=== PATIENT | female | born 1965 | race Caucasian/White ===

== ENCOUNTER → 2019-12-01 12:47 | Outpatient (CLI) | payer BC, SELFPAY ==
--- NOTE | ~2019-12-01 | MM_ITS ---
EXAMINATION: MM screening [facility] BI w rose marie HISTORY: Screening mammogram TECHNIQUE: Craniocaudal and mediolateral oblique 3-D tomosynthesis images were obtained and synthetic 2-D images were generated. CAD analysis was submitted and interpreted. COMPARISON: 12/17/2017, 12/08/2017, 10/26/2016, 10/12/2016 BREAST PARENCHYMAL COMPOSITION: There are scattered areas of fibroglandular density. FINDINGS: There is stable focal asymmetry in the posterior third of the upper inner left breast. Ther e is no evidence of suspicious mass, calcification, or architectural distortion to suggest malignancy in either breast. There has been no suspicious interval change. IMPRESSION: 1. No mammographic evidence of malignancy. 2. Recommend routine screening mammography in one year. BI-RADS Category 2: Benign finding(s). Reviewed, dictated and finalized at location A.
== END ==
PROVIDERS: PCP Family Medicine; Visit Provider Obstetrics & Gynecology Gynecology
DX: Z12.31 Encounter for screening mammogram for malignant neoplasm of breast (principal)
CPT/HCPCS: 77063; 77067

== ENCOUNTER → 2020-02-19 15:30 | Emergency (ER) | payer SELFPAY ==
--- NOTE | 2020-02-19 15:40 | PC.NURSE ---
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 Left from registration due to her insurance being ineligable.
== END | disposition left against medical advice (07) ==
PROVIDERS: Emergency Provider Nurse Practitioner; PCP Family Medicine
DX: Z53.21 Procedure and treatment not carried out due to patient leaving prior to being seen by health care provider (principal)
CPT/HCPCS: 99199

== ENCOUNTER 2020-04-22 15:44 | Emergency (ER) | payer BC, SELFPAY ==
--- NOTE | 2020-04-22 15:50 | ED.URI ---
HPI - URI/Sore Throat General Chief Complaint: Upper Respiratory Infection Stated Complaint: upper respiratory infection Time Seen by Provider: 04/22/20 15:50 Source: patient and RN notes reviewed Mode of arrival: ambulatory Limitations: no limitations History of Present Illness HPI Narrative: The overweight patient, non-smoker/ occ drinker, presents with sore throat. Patient states a week history of sore scratchy throat with pain radiating to her left ear. No fever measured, cough, shortness of breath, chest pains, sick family, sneezing/wheezing, vomiting/diarrhea/dehydration, rash, known sick contacts, travel history. Patient requests amoxicillin preparations, as 'worked in the past before'. Related Data Home Medications Medication Instructions Recorded Confirmed ergocalciferol (vitamin D2) 1,250 mcg PO WEEKLY 04/22/20 04/22/20 [Vitamin D2] potassium chloride 10 meq PO DAILY 04/22/20 04/22/20 Allergies Allergy/AdvReac Type Severity Reaction Status Date / Time latex Allergy Mild NOT SURE, Unverified 04/22/20 16:03 NO PROBLEMS WITH FRUIT, NUTS, BALLOONS, ELASTIC Review of Systems Review of Systems: Narrative: General/Constitutional: No weight loss,fever Eyes: N0: Redness,discharge Ears/Nose/Throat: No: Epistaxis,ear discharge Respiratory: Denies: Hemoptysis Gastrointestinal: No Vomiting, Bleeding-rectal Skin: No Lumps, eruption Neurologic: No Focal Weakness,Sz Hematologic: Denies: Petechiae/Purpura Psychiatric: No: Suicida ideationl All Other Systems: Reviewed and Negative [facility] Past Medical History Medical History (Updated 04/22/20 @ 16:18 by Al Nathan MD) Allergic rhinitis Family History Family History (Updated 12/26/18 @ 14:35 by DOCTOR UNKNOWN) Father Diabetes mellitus Family history of kidney disease Mother Family history of cardiac disorder Sibling Asthma Other Family history of malignant neoplasm Social History Social History Smoking status: Never smoker Second hand tobacco smoke exposure: No Alcohol intake: current Comments At time of signature, agree with nursing past medical, surgical, social and family history. There is no relevant family history pertinent to the presenting complaint Exam Narrative: Exam Narrative: General Appearance: Well appearing, No distress EYE: PERRLA, Conjunctiva clear Ears: External ear normal, TMs benign Nose: Normal nose Mouth/Throat: Normal appearing, Normal lips, minimal pharyngeal edema Neck: Supple Respiratory: Airway patent, No respiratory distress Musculoskeletal: Full strength Skin: Warm, Dry Neurological: A&O x3, CN II-X intact Psychiatric: Normal mood, Normal affect- talkative Course Vital Signs Vital signs: Vital Signs Temperature 98.1 F 04/22/20 15:57 Pulse Rate 72 04/22/20 15:57 Respiratory Rate 16 04/22/20 15:57 Blood Pressure 120/68 04/22/20 15:57 Pulse Oximetry 99 04/22/20 15:57 Temperature 98.1 F 04/22/20 15:57 Pulse Rate 72 04/22/20 15:57 Respiratory Rate 16 04/22/20 15:57 Blood Pressure 120/68 04/22/20 15:57 Pulse Oximetry 99 04/22/20 15:57 MDM - URI/Sore Throat Lab Data Labs: Strep Screen Presumptive Negative *(Reference Range: Negative)* Discharge Plan Discharge Clinical Impression: Pharyngitis Qualifiers: Pharyngitis/tonsillitis etiology: unspecified etiology Qualified Code(s): J02.9 - Acute pharyngitis, unspecified Patient Disposition: Home, Self-Care Condition: Stable Instructions: Antibiotic Form, Pharyngitis (ED) Prescriptions: New Lidocaine Viscous 2 % solution 5 ml MUCOUS MEM QID PRN (Reason: pain) Qty: 100 RF: 0 amoxicillin-pot clavulanate [Augmentin] 500-125 mg tablet 1 tablet PO Q12H Qty: 20 RF: 0 No Action ergocalciferol (vitamin D2) [Vitamin D2] 1,250 mcg (50,000 unit) Capsule 1,250 mcg PO WEEKLY RF: 0 potassiu
[2020-04-22 15:57] VITALS: BP 120/68; PULSE 72; RESP 16; TEMP 36.7; O2SAT 99
--- NOTE | 2020-04-24 15:05 | PC.NURSE ---
Called patient to follow up on COVID testing Patient stated does [employer] make a bunch of money off these tests ? why are you calling me I explained that I was following up on covid testing ordered by our physican She stated don't call back and hung up
== END 2020-04-22 16:28 | disposition home or self-care (01) ==
PROVIDERS: Emergency Provider Emergency Medicine; PCP Family Medicine
DX: J02.9 Acute pharyngitis, unspecified (principal)
CPT/HCPCS: 87081; 87880; 99213; G0463

== ENCOUNTER → 2020-06-09 10:43 | Outpatient (CLI) | payer BC, SELFPAY ==
--- NOTE | ~2020-06-09 | XR_ITS ---
XR ankle LT min 3V 06/09/2020 11:04 Indication: Left ankle pain after injury Procedure: 4 views left ankle Comparison: 11/06/2008 Findings: There is an avulsion fracture distal tip of the fibula. Moderate lateral soft tissue swelli ng. There is a degenerative calcaneal enthesophyte. Ankle mortise intact. No foreign bodies. Impression: 1: Nondisplaced avulsion fracture distal tip of the fibula. Reviewed, dictated and finalized at location B. Impression: 1: Nondisplaced avulsion fracture distal tip of the fibula.
== END ==
PROVIDERS: PCP Family Medicine; Visit Provider Physician Assistant
DX: S82.832A Other fracture of upper and lower end of left fibula, initial encounter for closed fracture (principal)
CPT/HCPCS: 73610

== ENCOUNTER → 2021-03-25 08:27 | Outpatient (CLI) | payer OTHER, SELFPAY ==
--- NOTE | ~2021-03-25 | DEXA_ITS ---
Bone Density Report Name: Earnestine Aguila Age: 55 Sex: Female Ethnicity: White Date of : 1965 Indication: osteopenia; postmenopausal Referring Provider: EMA MUÑIZ Study: Bone densitometry was performed. Exam Date: March 25, 2021 Accession number: [id number] Bone Density: Region BMD T-score Z-score Classification AP Spine (L1-L4) 0.857 -1.7 -0.7 Osteopenia Femoral Neck (Left) 0.707 -1.3 -0.2 Osteopenia Total Hip (Left) 0.905 -0.3 0.4 Normal Femoral Neck (Right) 0.660 -1.7 -0.7 Osteopenia Total Hip (Right) 0.832 -0.9 -0.2 Normal Total Hip Mean 0.869 -0.6 0.1 Normal World Health Organization criteria for BMD impression classify patients as: Normal (T-score at or above -1.0), Osteopenia (T-score between -1.0 and -2.5), or Osteoporosis (T-score at or below -2.5). 10-year Fracture Risk(1): Major Osteoporotic Fracture 6.4% Hip Fracture 0.5% Reported Risk Factors: [place] (), Neck BMD=0.660, BMI=33.2 (1) FRAX(R) Version 3.08. Fracture probability calculated for an untreated patient. Fracture probability may be lower if the patient has received treatment. Previous Exams: Region Exam Age BMD T-score BMD Change BMD Change Date g/cm2 vs Baseline vs Previous AP Spine(L1-L4) 03/25/2021 55 0.857 -1.7 -0.158* -0.047* 12/26/2018 53 0.904 -1.3 -0.111* -0.001 10/12/2016 51 0.906 -1.3 -0.109* -0.109* 06/24/2009 44 1.015 -0.3 Total Hip(Left) 03/25/2021 55 0.905 -0.3 -0.117* 0.020 12/26/2018 53 0.885 -0.5 -0.137* -0.066* 10/12/2016 51 0.951 0.1 -0.071* -0.071* 06/24/2009 44 1.022 0.7 Total Hip(Right) 03/25/2021 55 0.832 -0.9 -0.153* -0.034* 12/26/2018 53 0.866 -0.6 -0.118* -0.041* 10/12/2016 51 0.907 -0.3 -0.078* -0.078* 06/24/2009 44 0.985 0.3 *Denotes significance at 95% confidence level, LSC for AP Spine = 0.022 g/cm2, LSC for Total Hip = 0.027 g/cm2 Clinical Information Provided by Patient: Has used the following medications: Vitamin D Patient maximum height was 64.5 Menopause Age: 43 Drinks caffeinated beverages Onset of menses at age 10 Number of children 2 Impression: The patient has low bone mass, based on the Total Spine T-score. The patient has an estimated ten-year risk of hip fracture of 0.5% and an e
--- NOTE | ~2021-03-25 | MM_ITS ---
EXAMINATION: MM screening [facility] BI w rose marie HISTORY: Screening mammogram TECHNIQUE: Craniocaudal and mediolateral oblique 3-D tomosynthesis images were obtained and synthetic 2-D images were generated. CAD analysis was submitted and interpreted. COMPARISON: 11/30/2009, 12/17/2017, 11/28/2017 BREAST PARENCHYMAL COMPOSITION: There are scattered areas of fibroglandular density. FINDINGS: The previously described focal asymmetry of the posterior left breast is decreased in promi nence, consistent with a benign finding. There is no evidence of suspicious mass, calcification, or a rchitectural distortion to suggest malignancy in either breast. There has been no suspicious interval change. IMPRESSION: 1. No mammographic evidence of malignancy. 2. Recommend routine screening mammography in one year. BI-RADS Category 2: Benign finding(s). Reviewed, dictated and finalized at location A.
== END ==
PROVIDERS: PCP Family Medicine; Visit Provider Obstetrics & Gynecology Gynecology
DX: Z12.31 Encounter for screening mammogram for malignant neoplasm of breast (principal); Z78.0 Asymptomatic menopausal state; M85.88 Other specified disorders of bone density and structure, other site; M85.852 Other specified disorders of bone density and structure, left thigh; M85.851 Other specified disorders of bone density and structure, right thigh
CPT/HCPCS: 77063; 77067; 77080

== ENCOUNTER → 2022-05-04 14:58 | Outpatient (CLI) | payer BC, SELFPAY ==
--- NOTE | ~2022-05-04 | MM_ITS ---
EXAMINATION: MM screening [facility] BI w rose marie HISTORY: Screening mammogram TECHNIQUE: Craniocaudal and mediolateral oblique 3-D tomosynthesis images were obtained and synthetic 2-D images were generated. CAD analysis was submitted and interpreted. COMPARISON: 03/25/2021, 12/01/2019, 12/17/2017, 11/28/2017 BREAST PARENCHYMAL COMPOSITION: There are scattered areas of fibroglandular density. FINDINGS: A chronic mass in the upper outer quadrant of the left breast is consistent with a benign f inding given the lack of interval change. There is no suspicious mass, calcification, or architectura l distortion to suggest malignancy in either breast. There has been no suspicious interval change. IMPRESSION: 1. No mammographic evidence of malignancy. 2. Recommend routine screening mammography in one year. BI-RADS Category 2: Benign finding(s). Reviewed, dictated and finalized at location A.
== END ==
PROVIDERS: PCP Family Medicine; Visit Provider Obstetrics & Gynecology Gynecology
DX: Z12.31 Encounter for screening mammogram for malignant neoplasm of breast (principal)
CPT/HCPCS: 77063; 77067

== ENCOUNTER → 2022-08-28 15:18 | Outpatient (CLI) | payer BC, SELFPAY ==
--- NOTE | ~2022-08-28 | XR_ITS ---
EXAM: XR knee RT min 4V DATE: 08/28/2022 15:36 HISTORY: knee pain . COMPARISON: 06/05/2014. FINDINGS: Decreased mineralization. No fracture or dislocation. Nonaggressive right proximal fibular lesion, very little change since the prior study in 2013, likely enchondroma. Mild medial joint spac e narrowing. Mild tricompartmental osteophytosis. No erosion or periosteal change. Soft tissues withi n normal limits. Small left knee joint effusion. IMPRESSION: Mild tricompartmental right knee osteoarthritis. Likely proximal right fibular enchondrom a, no imaging follow-up recommended unless the reported knee pain corresponds to the proximal fibula. Reviewed, dictated and finalized at location K. [employer] IMPRESSION: Mild tricompartmental right knee osteoarthritis. Likely proximal ri ght fibular enchondroma, no imaging follow-up recommended unless the reported k nee pain corresponds to the proximal fibula.
== END ==
PROVIDERS: PCP Family Medicine; Visit Provider Family Medicine
DX: M17.11 Unilateral primary osteoarthritis, right knee (principal)
CPT/HCPCS: 73564

== ENCOUNTER 2022-09-01 07:57 | Outpatient (CLI) | payer BC, SELFPAY ==
[2022-09-01 08:45] LABS: Anion Gap 6 mmol/L (8-16); Blood Urea Nitrogen 12 mg/dL (7-17); Calcium 8.5 mg/dL (8.4-10.2); Carbon Dioxide 28 mmol/L (22-30); Chloride 106 mmol/L (98-107); Estimated Glomerular Filt Rate > 60; Glucose 111 mg/dL (65-110); Potassium 4.4 mmol/L (3.4-5.0); Sodium 140 mmol/L (137-145)
[2022-09-01 12:32] LABS: Hemoglobin A1C 5.8 % (<5.7)
[2022-09-12 14:42] LABS: Gliadin AB, IgG <1.0; TTG IGA AB <1.0; Tissue Transglutaminase IgG Ab <1.0
== END 2022-09-01 07:58 | disposition home or self-care (01) ==
PROVIDERS: PCP Family Medicine; Visit Provider Family Medicine
DX: K52.9 Noninfective gastroenteritis and colitis, unspecified (principal); R73.9 Hyperglycemia, unspecified; R73.09 Other abnormal glucose; R53.83 Other fatigue
CPT/HCPCS: 36415; 80048; 83036; 83516; 84443; 86255

== ENCOUNTER 2022-09-03 08:25 | Outpatient (CLI) | payer BC, SELFPAY ==
[2022-09-05 21:48] LABS: Fecal Fat, Ql Normal (Normal)
== END 2022-09-03 08:26 | disposition home or self-care (01) ==
LOC: ANHLAB 08:28
PROVIDERS: PCP Family Medicine; Visit Provider Family Medicine
DX: K52.9 Noninfective gastroenteritis and colitis, unspecified (principal)
CPT/HCPCS: 82705; 87045; 87427

== ENCOUNTER 2022-10-04 01:11 | Day surgery (SDC) | payer BC, SELFPAY ==
--- NOTE | 2022-10-03 13:04 | PM.HPGS ---
History of Present Illness History of Present Illness Consent: Risks, benefits, and alternatives have been discussed and questions answered. Patient agrees to proceed with procedure. Chief complaint: epigastric pain Narrative: Earnestine Aguila is a 57 year old female evaluation of Epigastric pain anddiarrhea. Reports? loose stools since April. ? States stools are mushy and yellow in color.? She reports 2 bowel movements per day.? state loose stools most often occur 45-60 minutes after eating with urgency. ? She does associate the loose stools with bread and milk. States prior to the bowel movement she will have epigastric discomfort and burning.?She does report intermittent nausea however this is not new it has been going on for years.? She denies any vomiting or reflux symptoms.? she denies any right upper quadrant pain.? Reports epigastric pain does not radiate anywhere.? Review of Systems Review of Systems: All systems reviewed & are unremarkable except as noted in HPI and below PMFSH Past Medical History Medical History Abdominal pain Allergic rhinitis Injury of left foot Latex allergy Left foot pain Obesity (BMI 30.0-34.9) Osteopenia Seasonal allergies Sprain of ankle Family History Family History Father Diabetes mellitus Family history of kidney disease Mother Family history of cardiac disorder Sibling Asthma Son Hemophilia Other Family history of malignant neoplasm Social History Social History Smoking status: Never smoker Second hand tobacco smoke exposure: No Alcohol intake: never Substance use: never Substance use type: does not use Lack of Transportation: No Lack of Food: Never True Current Housing: I Have Housing Concerned About Future Housing: No Difficulty Paying Gas/Electric Bills: No Difficulty Paying for Meds: No Currently Unemployed: No Education: Master's Degree or Higher Difficulty w/ Childcare or Family Care: No Living arrangements: with family Additional living arrangements comments: Lives with . Gender identity (if verbalized by the patient): Female Spiritual care concerns: No Meds Home Medications and Allergies Home Medications Medication Instructions Recorded Confirmed Type ergocalciferol (vitamin D2) 1,250 1,250 mcg PO WEEKLY #12 caps 06/09/20 09/28/22 Rx mcg (50,000 unit) capsule (Vitamin D2) multivitamin with minerals-folic 1 tablet PO DAILY 09/28/22 09/28/22 History acid 0.4 mg tablet Allergies Allergy/AdvReac Type Severity Reaction Status Date / Time latex Allergy Mild NOT SURE, Verified 09/28/22 13:21 NO PROBLEMS WITH FRUIT, NUTS, BALLOONS, ELASTIC naproxen AdvReac Intermediate headache, Verified 09/28/22 13:21 dizziness Exam Const: General: alert Orientation/consciousness: patient oriented x3 Resp: Auscultation: clear to auscultation bilaterally Cardio: Rhythm: regular rhythm GI: GI Palp: Yes Soft to palpation and No Tenderness to palpation present (GI) Neuro: General: patient oriented x3 Assessment and Plan Assessment and plan (1) Epigastric pain: Code(s): R10.13 - Epigastric pain Status: Acute Assessment and Plan: EGD with possible biopsy or dilatation or cautery.
[2022-10-04 10:36] VITALS: BP 136/75; PULSE 80; RESP 18; TEMP 36.5; O2SAT 99; BMI 39.0
[2022-10-04] MEDS: LACTATED RINGERS 1,000 ML 150 ML IV CONT (10:48)
--- NOTE | 2022-10-04 10:55 | WPDANESEPPF ---
Anes - Initial Pre Proc Eval Procedure: Operation Date: 10/04/22 11:30 Proposed Procedures p Esophagogastroduodenoscopy - Daniel Stahl MD Date/Time: 10/04/22 10:55 Surgeon: Daniel Stahl MD Pre Op Diagnosis: epigastric pain Patient Data Age: 57 Gender: F Height: 1.6 m Weight: 100 kg Last Vital Signs Temp 97.7 F 10/04/22 10:36 Pulse 80 10/04/22 10:36 Resp 18 10/04/22 10:36 BP 136/75 10/04/22 10:36 Pulse Ox 99 10/04/22 10:36 O2 Del Method Room Air 10/04/22 10:36 Allergies Allergy/AdvReac Type Severity Reaction Status Date / Time latex Allergy Mild NOT SURE, Verified 10/04/22 10:35 NO PROBLEMS WITH FRUIT, NUTS, BALLOONS, ELASTIC naproxen AdvReac Intermediate headache, Verified 10/04/22 10:35 dizziness Home Medications Medication Instructions Recorded Confirmed Type ergocalciferol (vitamin D2) 1,250 1,250 mcg PO WEEKLY #12 caps 06/09/20 10/04/22 Rx mcg (50,000 unit) capsule (Vitamin D2) multivitamin with minerals-folic 1 tablet PO DAILY 09/28/22 10/04/22 History acid 0.4 mg tablet Patient hx anesthesia problems: none Family hx anesthesia problems: none Results Review: All pre-operative results and documents have been reviewed as part of the pre-operative evaluation. [facility] Past Medical History Medical History Abdominal pain Allergic rhinitis Injury of left foot Latex allergy Left foot pain Obesity (BMI 30.0-34.9) Osteopenia Seasonal allergies Sprain of ankle Family History Family History Father Diabetes mellitus Family history of kidney disease Mother Family history of cardiac disorder Sibling Asthma Son Hemophilia Other Family history of malignant neoplasm Social History Social History Smoking status: Never smoker Second hand tobacco smoke exposure: No Alcohol intake: never Substance use: never Substance use type: does not use Lack of Transportation: No Lack of Food: Never True Current Housing: I Have Housing Concerned About Future Housing: No Difficulty Paying Gas/Electric Bills: No Difficulty Paying for Meds: No Currently Unemployed: No Education: Master's Degree or Higher Difficulty w/ Childcare or Family Care: No Living arrangements: with family Additional living arrangements comments: Lives with . Gender identity (if verbalized by the patient): Female Spiritual care concerns: No Anes - Eval Final PreProcedure Day of Procedure 10/04/22 10:55 Patient weight: morbidly obese Heart: regular rate and rhythm Lungs: clear to auscultation Airway: Mallampati scale class II Neurological: alert and oriented Last oral intake: >/= 8 hours ASA classification: III Emergent: no Anesthetic plan: proceed Anesthesia type and monitoring: general GIVS and standard monitoring Results Review: All pre-operative results and documents have been reviewed as part of the pre-operative evaluation. Informed Consent: The patient's anesthetic plan and its attendant risks and benefits were discussed with the patient/family/POA. Questions were solicited and answers provided to the satisfaction of the patient/family/POA.
[2022-10-04 11:19] VITALS: BP 98/53; PULSE 86; RESP 25; O2SAT 97
[2022-10-04 11:29] VITALS: BP 97/68; PULSE 80; RESP 24; O2SAT 97
[2022-10-04 11:39] VITALS: BP 115/96; PULSE 74; RESP 18; O2SAT 97
== END 2022-10-04 11:46 | disposition home or self-care (01) ==
PROVIDERS: PCP Family Medicine; Visit Provider Internal Medicine Gastroenterology
PROC: 0DJ08ZZ Inspection of Upper Intestinal Tract, Via Natural or Artificial Opening Endoscopic (ICD-10-PCS; CPT 43235; principal; 2022-10-04 11:30)
DX: K21.9 Gastro-esophageal reflux disease without esophagitis (principal); M85.80 Other specified disorders of bone density and structure, unspecified site; E66.01 Morbid (severe) obesity due to excess calories; Z68.39 Body mass index [BMI] 39.0-39.9, adult
CPT/HCPCS: 43239; 87081; 88305; J2704; J7120

== ENCOUNTER 2022-10-05 15:16 | Outpatient (CLI) | payer BC, SELFPAY ==
--- NOTE | ~2022-10-05 | CT_ITS ---
EXAMINATION: CT abdomen w con DATE: 10/05/2022 15:51 INDICATION: Right upper quadrant abdominal pain TECHNIQUE: Computed tomography (CT) of the abdomen and pelvis was performed with 100 CC Omnipaque 350 intravenous contrast. Automated exposure control and iterative reconstruction technique were employe d. Exam dose: 597.04 mGy-cm total exam DLP. COMPARISON: October 27, 2010 CT abdomen pelvis FINDINGS: The lung bases are clear. Normal heart size. No pericardial or pleural effusion. There are numerous stones filling the gallbladder lumen. Gallbladder wall thickness is within normal range. No pericholecystic fluid or fat stranding is noted. The liver, spleen, pancreas, adrenal glands and kidneys are unremarkable. No bile duct or pancreatic duct dilatation. No urinary tract calculus or hydroureteronephrosis is detected Normal caliber of the abdominal aorta. No intraperitoneal or retroperitoneal mass lesion or adenopath y or ascites. No bowel obstruction or intraperitoneal free air. Small fat-containing umbilical hernia. There is a fat-containing right parasagittal supraumbilical fat-containing hernia as well. This measu res up to approximately 4.4 cm maximal transverse dimension. Included skeletal structures are unremarkable. IMPRESSION: Cholelithiasis Supraumbilical right parasagittal fat-containing ventral abdominal wall hernia Small fat-containing umbilical hernia Reviewed, dictated and finalized at Location A. Reviewed, dictated and finalized at location A. CONTROLLER
== END 2022-10-05 15:17 | disposition home or self-care (01) ==
PROVIDERS: PCP Family Medicine; Visit Provider Nurse Practitioner Family
DX: K80.20 Calculus of gallbladder without cholecystitis without obstruction (principal); K42.9 Umbilical hernia without obstruction or gangrene
CPT/HCPCS: 74160; Q9967

== ENCOUNTER 2022-10-22 11:07 | Outpatient (CLI) | payer BC, SELFPAY ==
--- NOTE | 2022-10-22 11:00 | ECG_ITS ---
Measurements Intervals Raymond Rate: 81 P: 22 SD: 154 QRS: 4 QRSD: 82 T: 2 QT: 374 QTc: 434 Interpretive Statements SINUS RHYTHM LOW QRS VOLTAGE IN PRECORDIAL LEADS BORDERLINE R WAVE PROGRESSION, ANTERIOR LEADS CONSIDER INFERIOR INFARCT, AGE INDETERMINATE BORDERLINE T WAVE ABNORMALITY- ANTERIOR LEADS BASELINE ARTIFACT- I, II, III, AVR, AVL, AVF ABNORMAL ECG NO PREVIOUS ECG AVAILABLE FOR COMPARISON Electronically Signed On 10-22-2022 12:08:44 ADJUNCT INSTRUCTOR by Raúl Alonzo D.O.
[2022-10-22 12:11] LABS: Alanine Aminotransferase 21 U/L (6-35); Albumin Level 4.3 g/dL (3.5-5.1); Alkaline Phosphatase 78 U/L (38-126); Amylase 65 U/L (30-110); Anion Gap 5 mmol/L (8-16); Aspartate Amino Transferase 23 U/L (14-36); Bilirubin,Total 0.5 mg/dL (0.2-1.3); Blood Urea Nitrogen 11 mg/dL (7-17); Calcium 8.7 mg/dL (8.4-10.2); Carbon Dioxide 30 mmol/L (22-30); Chloride 101 mmol/L (98-107); Estimated Glomerular Filt Rate > 60; Glucose 94 mg/dL (65-110); Lipase 73 U/L (23-300); Potassium 4.1 mmol/L (3.4-5.0); Sodium 136 mmol/L (137-145)
== END 2022-10-22 11:08 | disposition home or self-care (01) ==
LOC: ANHSURGERY 11:11
PROVIDERS: PCP Family Medicine; Visit Provider Surgery
DX: K80.10 Calculus of gallbladder with chronic cholecystitis without obstruction (principal); Z01.818 Encounter for other preprocedural examination; R94.31 Abnormal electrocardiogram [ECG] [EKG]
CPT/HCPCS: 36415; 80053; 82150; 82248; 83690; 86850; 86900; 86901; 93005

== ENCOUNTER 2022-10-26 01:57 | Day surgery (SDC) | payer BC, SELFPAY ==
[2022-10-22 08:49] VITALS: BMI 39.0
--- NOTE | 2022-10-22 08:57 | PC.NURSE ---
Addendum entered by Jacey Holland RN 10/22/22 09:07: USE HIBICLENS WITH YOUR SHOWER Addendum entered by Jacey Holland RN 10/22/22 09:05: USE HIBICLENS ANTIBACTERIAL SOAP THE MORNING OF SURGERY OR THE NIGHT BEFORE. Original Note: Report to the Outpatient Waiting Room, entrance under the green pavilion located off [facility], at time _0600_ on date _10/26/22. Planned Procedure Time: _729 _. Time changes happen often and if your time is changed the preop area will call you the afternoon before. - You and your visitor will be asked to self-screen and do not enter if you have any COVID symptoms. - Only one visitor is requested with a max of two and NO children visitors are allowed at this time. - The patient visitor may be requested to leave or wait in car when not with patient due to distancing restrictions. - A mask is optional within the hospital at this time. Patients may have clear liquids (water, carbonated beverages, clear teas, apple juice) until 3 hours prior to surgery with a maximum of 20 ounces. - No food from midnight until time of surgery - Infants may have breast milk until 4 hours before surgery, infant formula 6 hours prior to surgery. - Children will be allowed to drink immediately following surgery. If applicable, please bring a bottle or sippy cup to assist with drinking. Juice, water, soda, and popsicles are readily available. For infants on formula, please bring formula the day of surgery. Pacifiers are allowed. Take the following medications with a SIP of water the morning of surgery: NONE____ DO NOT STOP ANY OF YOUR OTHER PRESCRIPTION MEDICATIONS PRIOR TO SURGERY ?EXCEPT THE FOLLOWING Medications to discontinue per physician VITAMINS Date to take last dose 10/24/22____ Please no make-up, nail mohawk, hairspray, perfume, deodorant, or body powder the day of surgery. No jewelry (including any body piercings) or valuables the day of surgery, leave them at home. Please take a shower or bath the night before, or the morning of, surgery with an antibacterial soap. Wear comfortable, loose fitting clothing. Children are encouraged to wear pajamas. - Jewelry must be removed prior to entering the operating room. Rings and piercings that are not removed may be cut off. - The hospital will not accept responsibility for valuables. - Please leave all valuables, including medications, at home the day of surgery. If you are going home after surgery, a licensed intermodal truck driver must drive you home. - NO public transportation without another adult if you receive anesthesia. - We recommend that an adult stay with you for 24 hours following discharge. - We also recommend that you do not drive, make important decision, drink alcoholic beverages, or take any drugs that were not prescribed by your health care provider for at least 24 hours after your discharge time. For Pediatric surgeries, we recommend two adults accompany the child home. Follow any additional instructions given to you from your surgeon. If you or anyone in your household have experienced Covid symptoms in the past week, please notify your surgeon or the nurse liaison at the phone number below for possible testing. Telephone instructions given to _PATIENT__and asked if any additional questions and then verbalized understanding. Patient advised to call surgeon office or pre surgery nurse liaison [phone] if any additional questions.
[2022-10-26] VITALS (15 sets, daily range): BP systolic 105–137; BP diastolic 40–83; PULSE 61–82; RESP 13–22; TEMP 36.2–36.4; O2SAT 91–100
--- NOTE | 2022-10-26 06:32 | P.PNAN_ITS ---
Anes - Initial Pre Proc Eval Procedure: Operation Date: 10/26/22 07:30 Proposed Procedures p Laparoscopic Cholecystectomy, Possible Open, - Corey Estrella MD s Open Ventral Hernia Repair - Corey Estrella MD Date/Time: 10/26/22 06:32 Surgeon: Corey Estrella MD Pre Op Diagnosis: chron cholecystitis/2nd to gallstones,incarce vent Patient Data Age: 57 Gender: F Height: 1.6 m Weight: 100 kg Allergies Allergy/AdvReac Type Severity Reaction Status Date / Time latex Allergy Mild Hives Verified 10/22/22 09:29 naproxen AdvReac Intermediate headache, Verified 10/04/22 10:35 dizziness Home Medications Medication Instructions Recorded Confirmed Type ergocalciferol (vitamin D2) 1,250 1,250 mcg PO WEEKLY #12 caps 06/09/20 10/22/22 Rx mcg (50,000 unit) capsule (Vitamin D2) multivitamin with minerals-folic 1 tablet PO DAILY 09/28/22 10/22/22 History acid 0.4 mg tablet Patient hx anesthesia problems: none Family hx anesthesia problems: none Results Review: All pre-operative results and documents have been reviewed as part of the pre- operative evaluation. [facility] Past Medical History Medical History Abdominal pain Allergic rhinitis Injury of left foot Latex allergy Left foot pain Obesity (BMI 30.0-34.9) Osteopenia Seasonal allergies Sprain of ankle Surgical History Surgical History (Updated 10/26/22 @ 06:36 by Josh Méndez MD) History of esophagogastroduodenoscopy (EGD) Family History Family History Father Diabetes mellitus Family history of kidney disease Mother Family history of cardiac disorder Sibling Asthma Son Hemophilia Other Family history of malignant neoplasm Social History Social History Smoking status: Never smoker Second hand tobacco smoke exposure: No Alcohol intake: never Substance use: never Substance use type: does not use Lack of Transportation: No Lack of Food: Never True Current Housing: I Have Housing Concerned About Future Housing: No Difficulty Paying Gas/Electric Bills: No Difficulty Paying for Meds: No Currently Unemployed: No Education: Master's Degree or Higher Difficulty w/ Childcare or Family Care: No Living arrangements: with family Additional living arrangements comments: Lives with . Gender identity (if verbalized by the patient): Female Spiritual care concerns: No Anes - Eval Final PreProcedure Day of Procedure 10/26/22 06:32 Patient weight: obese Heart: regular rate and rhythm Lungs: clear to auscultation Airway: Mallampati scale class II Neurological: alert and oriented Last oral intake: >/= 8 hours ASA classification: III Emergent: no Anesthetic plan: proceed Anesthesia type and monitoring: general ETT and standard monitoring Results Review: All pre-operative results and documents have been reviewed as part of the pre- operative evaluation. Informed Consent: The patient's anesthetic plan and its attendant risks and benefits were discussed with the patient/family/POA. Questions were solicited and answers provided to the satisfaction of the patient/family/POA.
[2022-10-26] MEDS: LACTATED RINGERS 1,000 ML 30 ML IV CONT ×2 (07:00→09:14)
[2022-10-26] MEDS: KETOROLAC 15 MG/ML VIAL (*BKC) IV PUSH (07:10)
[2022-10-26] MEDS: ACETAMINOPHEN 500 MG TABLET 1000 MG PO (07:10)
--- NOTE | 2022-10-26 07:25 | WPDHPUPDATE1 ---
History and Physical Update Update Date/Time: 10/26/22 07:25 History and Physical has been reviewed, including an updated exam of the patient. There are NO changes in the patient's condition. Risks, benefits, and alternatives have been discussed and questions answered. Patient agrees to proceed with procedure.
[2022-10-26] MEDS: ceFAZolin 2 GM/D5W 50 ML 2 GM/50 ML BAG IVPB (07:33)
[2022-10-26] MEDS: BUPivacaine HCL 0.5% 10 ML AMP 20 ML INFILTRATE (08:54)
[2022-10-26] MEDS: LIDO 1%/EPINEPHRINE 1:100,000 20 ML VIAL INFILTRATE (08:55)
[2022-10-26] MEDS: BUPivacaine HCL 0.5% PF 30 ML VIAL INFILTRATE (08:56)
[2022-10-26] MEDS: fentaNYL CITRATE INJ (*CRX) 100 MCG/2 ML VIAL 25 MCG IV PUSH ×8 (09:45→10:10)
[2022-10-26] MEDS: HYDROmorphone HCL INJ (*CRX) 1 MG/ML SYR 0.5 MG IV PUSH ×3 (10:21→10:44)
--- NOTE | 2022-10-26 10:24 | SUR.PHASEI ---
1015: Dr. Méndez notified of patients' uncontrolled pain. New orders received.
[2022-10-26] MEDS: ONDANSETRON INJ 4 MG/2 ML VIAL IV PUSH (10:51)
[2022-10-26] MEDS: SCOPOLAMINE 1.5 MG PATCH TRANSDERM (11:24)
[2022-10-26] MEDS: diphenhydrAMINE HCl INJ 50 MG/ML VIAL 25 MG IV PUSH (11:24)
--- NOTE | 2022-10-26 13:03 | SUR.PHASEII ---
Vital signs stable, BP cuff and IV removed. Patient attempting to get dressed. Patient's in room assisting patient with dressing.
--- NOTE | 2022-10-26 15:15 | W.PM.PROC2 ---
Procedure Note - Detailed Date of Procedure 10/26/22 Pre-op Diagnosis Chronic cholecystitis secondary to cholelithiasis Incarcerated epigastric ventral hernia Post-op Diagnosis Same Procedure Performed Laparoscopic cholecystectomy Open incarcerated epigastric ventral hernia repair without mesh Surgeon Corey Estrella MD [employer] Arelis Glover [facility] Anesthesia General Indications the patient presents with complaints of right upper quadrant abdominal pain associated with eating. Imaging reveals gallstones. She also has an incarcerated epigastric ventral hernia which she would like to have repaired at the same time. Findings Mild chronic cholecystitis with some adhesions of the omentum to the gallbladder wall. 2centimeter epigastric midline abdominal wall defect with incarcerated falciform ligament and preperitoneal fat. Description of Procedure After informed consent was obtained, the patient was taken to the operating room where she was placed supine on the OR table. General endotracheal anesthesia was administered. The abdomen was then prepped and draped in usual sterile fashion. A time-out was then performed correctly identifying the patient as well as procedure to be performed and verified she was given some IV antibiotics. I gained access to the abdomen through the left upper quadrant utilizing a 5millimeter Optiview port. Once inside the abdomen I saw that the falciform ligament was incarcerated within the epigastric ventral hernia defect. I then placed a 5millimeter umbilical trocar port through very small as 0.5centimeter umbilical hernia. The laparoscope was then switched over to the umbilical trocar port site and then looking into the upper portions of the abdomen placed and a 10millimeter epigastric trocar port and 2 right lateral subcostal 5millimeter trocar ports. Working through these ports I then used laparoscopic instruments to hold the gallbladder at the dome and then I stripped down the adhesions to the gallbladder wall bluntly. I then placed a 2nd grasper onto the infundibular gallbladder and then proceeded to dissect out the cystic duct circumferentially. The cystic artery was identified and dissected out circumferentially as well. The posterior wall the gallbladder at the infundibulum was dissected free of the liver until the critical view was obtained. At this point I then placed 2 clips proximal in cystic duct and 1 clip distally on and infundibular gallbladder. The cystic duct was divided with [place]. In a similar fashion cystic artery was clipped and divided as well. The gallbladder was resected off the liver with electrocautery. No bile or gallstones were spilled. Once the gallbladder was free from the liver is placed into an Endo-Catch bag and brought out through the epigastric port site. The gallbladder and its contents was sent to pathology for examination. I then irrigated out the right upper quadrant of the abdomen and the gallbladder fossa with copious amounts of sterile saline solution. I then aspirated the fluid from the right upper quad of the abdomen from the pelvis. I then removed the umbilical trocar port and then utilizing a Granee needle and an 0 Vicryl suture, I laparoscopically placed the suture in a transfascial fashion and I was able to close the small umbilical defect. I then removed all the trocar ports under visualization on all port sites were hemostatic. I then allowed the abdomen decompress. I then irrigated out all the ports with sterile saline solution and hemostasis was good. I then closed the epigastric 10millimeter trocar port fascia defect utilizing 0 Vicryl suture placed in a [id number] fashion. I then proceeded to close all of the remaining trocar port sites utilizing a running subcuticular 4 0 Monocryl suture. I then approached repair of the incarcerated epigastric ventral hernia. A 3centimeter vertical midline incision was made over the incarcerated contents of the hernia sac.
== END 2022-10-26 13:05 | disposition home or self-care (01) ==
PROVIDERS: PCP Family Medicine; Visit Provider Surgery
PROC: 0FT44ZZ Resection of Gallbladder, Percutaneous Endoscopic Approach (ICD-10-PCS; CPT 47562; principal; 2022-10-26 07:30)
PROC: 0WQF0ZZ Repair Abdominal Wall, Open Approach (ICD-10-PCS; CPT 47562; 2022-10-26 07:30)
DX: K80.10 Calculus of gallbladder with chronic cholecystitis without obstruction (principal); K43.6 Other and unspecified ventral hernia with obstruction, without gangrene; E66.9 Obesity, unspecified; Z68.37 Body mass index [BMI] 37.0-37.9, adult
CPT/HCPCS: 47562; 49592; 88304; A9270; C1713; J0690; J1100; J1170; J1200; J1885; J2250; J2405; J2704; J3010; J7120

== ENCOUNTER 2023-03-05 18:55 | Emergency (ER) | payer BC, SELFPAY ==
[2023-03-05 19:03] VITALS: BP 140/66; PULSE 82; RESP 16; TEMP 37.3; O2SAT 96
--- NOTE | 2023-03-05 19:19 | ED.URI ---
HPI - URI/Sore Throat General Chief Complaint: Upper Respiratory Infection Stated Complaint: ALLERGIES/LOSING VOICE/COUGH/CONGESITON/EYES BURN Time Seen by Provider: 03/05/23 19:05 Source: patient, RN notes reviewed and old records reviewed Mode of arrival: ambulatory Limitations: no limitations History of Present Illness HPI Narrative: 57 year old female who presents to [facility] care with complaints of cough, sinus congestion drainage which is green since Saturday with loss of voice. Patient reports that she has history of allergies and she takes Claritin D daily and has used some kind of nasal spray in the past. Patient reports that she has sore throat since Saturday and history of seasonal allergies. Patient states that cough is hacking and mucous is green in color. MD elicited complaint: cough, sore throat, rhinorrhea, nasal congestion and other (loss of voice) Pertinent past history: other (allergies) Onset (ago): day(s) (4-5 days) Pain scale (0-10): 3 Description of mucous: green Able to tolerate fluids by mouth: Yes Treatments prior to arrival: other (Claritin D) Related Data Allergies Allergy/AdvReac Type Severity Reaction Status Date / Time latex Allergy Mild Hives Verified 03/05/23 19:01 naproxen AdvReac Intermediate headache, Verified 03/05/23 19:01 dizziness Review of Systems Review of Systems: CONSTITUTIONAL: Denies malaise, chills, sweats, or fever. EYES: Denies visual changes, redness, or discharge. ENT: Reports rhinorrhea, congestion, sinus pain, bilateral otalgia and sore throat. CARDIOVASCULAR: Denies chest pain, palpitations, or edema. RESPIRATORY: Reports hacking cough.? Denies dyspnea. GASTROINTESTINAL: Denies abdominal pain, nausea, vomiting, diarrhea SKIN: Denies rash or itching. MUSCULOSKELETAL: Denies myalgia. NEUROLOGIC: Denies headache. All systems reviewed & are unremarkable except as noted in HPI and below PMFSH Past Medical History Medical History Abdominal pain Allergic rhinitis Enchondroma of bone Injury of left foot Latex allergy Left foot pain Obesity (BMI 30.0-34.9) Osteopenia Patellofemoral pain syndrome Right knee pain Seasonal allergies Sprain of ankle Surgical History Surgical History History of esophagogastroduodenoscopy (EGD) History of laparoscopic cholecystectomy 10/26/22 History of ventral hernia repair 10/26/22 Open incarcerated epigastric ventral hernia repair without mesh Family History Family History Father Diabetes mellitus Family history of kidney disease Mother Family history of cardiac disorder Sibling Asthma Son Hemophilia Other Family history of malignant neoplasm Social History Social History Smoking status: Never smoker Second hand tobacco smoke exposure: No Alcohol intake: never Substance use: never Substance use type: does not use Lack of Transportation: No Lack of Food: Never True Current Housing: I Have Housing Concerned About Future Housing: No Difficulty Paying Gas/Electric Bills: No Difficulty Paying for Meds: No Currently Unemployed: No Education: Master's Degree or Higher Difficulty w/ Childcare or Family Care: No Living arrangements: with family Additional living arrangements comments: Lives with . Gender identity (if verbalized by the patient): Female Spiritual care concerns: No Comments At time of signature, agree with nursing past medical, surgical, social and family history. There is no relevant family history pertinent to the presenting complaint Exam Narrative: GENERAL: Well-appearing, well-nourished, and in no acute distress. HEAD: Normocephalic EYES: PERRLA, conjunctivae clear ENT: Nares clear, turbinates edematous and erythematou
== END 2023-03-05 19:31 | disposition home or self-care (01) ==
PROVIDERS: Emergency Provider Registered Nurse; PCP Family Medicine
DX: J06.9 Acute upper respiratory infection, unspecified (principal); E66.9 Obesity, unspecified; Z68.37 Body mass index [BMI] 37.0-37.9, adult; M85.80 Other specified disorders of bone density and structure, unspecified site
CPT/HCPCS: 87081; 87880; 99213; G0463

== ENCOUNTER 2023-07-05 10:01 | Outpatient (CLI) | payer BC, SELFPAY ==
[2023-07-05 19:44] LABS: Basophils Percent Auto 0.6 % (0.2-1.2); Eosinophils Absolute Auto 0.2 K/mm3 (0-0.3); Eosinophils Percent Auto 3.5 % (0-4.4); Hematocrit 43.5 % (37.0-47.0); Hemoglobin 13.9 g/dL (12.0-15.0); Immature Granulocyte Absolute 0.01 K/mm3 (0.00-0.031); Immature Granulocyte Percent A 0.2 % (0-0.5); Immature Platelet Fraction Pct 3.3 % (0.9-11.2); Lymphocytes Absolute Auto 1.72 K/mm3 (0.9-3.2); Lymphocytes Percent Auto 31.6 % (18.3-44.2); Mean Corpuscular Volume 90.6 fl (80-100); Mean Platelet Volume 10.3 fl (7.4-10.4); Monocytes Absolute Auto 0.4 K/mm3 (0.1-0.6); Monocytes Percent Auto 7.2 % (2.6-8.5); Neutrophils Absolute Auto 3.1 K/mm3 (1.3-6.7); Neutrophils Percent Auto 56.9 % (45.5-73.1); Platelet Count Result 254 k/mm3 (150-375); Red Cell Distribution Width 12.6 % (11.5-14.5); White Blood Count 5.5 K/mm3 (4.5-10.0)
[2023-07-05 19:59] LABS: Alanine Aminotransferase 24 U/L (6-35); Albumin Level 4.3 g/dL (3.5-5.1); Alkaline Phosphatase 79 U/L (38-126); Anion Gap 7 mmol/L (8-16); Aspartate Amino Transferase 32 U/L (14-36); Bilirubin,Total 0.5 mg/dL (0.2-1.3); Blood Urea Nitrogen 17 mg/dL (7-17); Carbon Dioxide 30 mmol/L (22-30); Chloride 102 mmol/L (98-107); Cholesterol 186 mg/dL (0-200); Estimated Glomerular Filt Rate > 60; Glucose 105 mg/dL (65-110); HDL Direct 56 mg/dL; Potassium 4.2 mmol/L (3.4-5.0); Sodium 139 mmol/L (137-145); Triglycerides 102 mg/dL (<150)
[2023-07-05 20:16] LABS: Platelet Estimate Adequate (Adequate); Schistocytes None Seen (NORMAL)
[2023-07-05 20:18] LABS: LDL Cholesterol Direct 78 mg/dL
[2023-07-05 20:22] LABS: Thyroid Stimulating Hormone 0.036 uIU/mL (0.465-4.680)
[2023-07-05 20:29] LABS: Vitamin D 25 Hydroxy 35.3 ng/mL
[2023-07-05 20:47] LABS: Hemoglobin A1C 5.4 % (<5.7)
[2023-07-05 21:01] LABS: Hepatitis C Virus Antibody Negative (Negative)
== END 2023-07-05 10:02 | disposition home or self-care (01) ==
LOC: ANHGOSHLAB 10:03
PROVIDERS: PCP Family Medicine; Visit Provider Family Medicine
DX: Z00.00 Encounter for general adult medical examination without abnormal findings (principal); Z11.59 Encounter for screening for other viral diseases; M85.80 Other specified disorders of bone density and structure, unspecified site; Z79.899 Other long term (current) drug therapy
CPT/HCPCS: 36415; 80053; 80061; 82306; 83036; 84443; 85025; 85055; 86803

== ENCOUNTER 2023-08-02 07:56 | Outpatient (CLI) | payer BC, SELFPAY | END 2023-08-02 07:57 | disposition home or self-care (01) | LOC: ANHGOSHLAB 07:58 | PROVIDERS: PCP Family Medicine; Visit Provider Physician Assistant | DX: R79.89 Other specified abnormal findings of blood chemistry (principal) | CPT/HCPCS: 36415; 84439; 84443 ==

== ENCOUNTER 2023-08-16 14:34 | Outpatient (CLI) | payer BC, SELFPAY ==
[2023-08-16 18:38] LABS: Vitamin D 25 Hydroxy 34.7 ng/mL
== END 2023-08-16 14:35 | disposition home or self-care (01) ==
PROVIDERS: PCP Family Medicine
DX: E55.9 Vitamin D deficiency, unspecified (principal)
CPT/HCPCS: 36415; 82306

== ENCOUNTER 2023-12-21 08:16 | Emergency (ER) | payer OTHER, SELFPAY ==
--- NOTE | ~2023-12-21 | XR_ITS ---
XR chest 2V DATE: 12/21/2023 09:04 INDICATION: Cough, wheezing TECHNIQUE: 2 views COMPARISON: 12/15/2018 2 view chest FINDINGS: Heart size is within upper normal range. Minimal aortic unfolding and aortic arch calcifica tion. No hilar or mediastinal enlargement. No pulmonary infiltrate or consolidation, pleural effusion or pulmonary vascular congestion or pneumothorax. Status post cholecystectomy. Osteopenia. IMPRESSION: No active pulmonary disease Reviewed, dictated and finalized at location A. IMPRESSION: No active pulmonary disease
--- NOTE | ~2023-12-21 | XR_ITS ---
XR wrist RT min 3V DATE: 12/21/2023 09:04 INDICATION: Wrist pain. No injury. TECHNIQUE: 4 views COMPARISON: None FINDINGS: No fracture or dislocation, periosteal reaction or bone destruction. There is mild osteoart hritis at the first carpometacarpal joint. No erosive change or chondrocalcinosis. IMPRESSION: Mild first carpometacarpal osteoarthritis Reviewed, dictated and finalized at location A.
[2023-12-21 08:32] VITALS: BP 126/90; PULSE 87; RESP 16; TEMP 36.9; O2SAT 98
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
== END 2023-12-21 09:23 | disposition home or self-care (01) ==
PROVIDERS: Emergency Provider Registered Nurse; PCP Family Medicine
DX: J40 Bronchitis, not specified as acute or chronic (principal); M77.8 Other enthesopathies, not elsewhere classified; M85.80 Other specified disorders of bone density and structure, unspecified site
CPT/HCPCS: 71046; 73110; 99214; G0463